=== PATIENT | female | born 1995 | race Caucasian/White ===

== ENCOUNTER 2019-12-19 10:40 | Observation (INO) ==
[2019-12-19] MEDS ORDERED: IOPAMIDOL 100 ML BOTTLE IV ONE (10:41)
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
[2019-12-19] MEDS ORDERED: morphine 4 MG/ML VIAL ONE (11:26)
[2019-12-19] MEDS ORDERED: morphine 2 MG/ML VIAL ONE (11:26)
--- NOTE | 2019-12-19 12:19 | Cat Scan Report ---
History: Nonhealing wound in the left ankle with worsening pain, status post prior ligament repair 11/10/19 TECHNIQUE: The left foot and ankle were imaged following injection of intravenous nonionic contrast. Sagittal, coronal and axial reconstructions were created. The radiation exposure was limited using dose reduction technology. FINDINGS: There is a skin ulceration lateral to the distal fibula. Beneath the ulceration there is a subcutaneous abscess which contains small bubbles of air. The abscess collection measures 1.8 x 2.8 x 3.0 cm. The infection extends into the joint. There is a joint effusion and gas within the ankle joint. There is also surrounding cellulitis. The gas has dissected superior to the ankle joint and extends into the tibialis anterior muscle. No abscess is seen within the muscle. This also small amount of gas posterior to the ankle joint. Bone windows show no apparent osteomyelitis. The ankle joint space is normal in width and alignment.. There is a surgically created small tunnel along the anterior border of the distal fibula following the ligament repair. The subtalar joints and intertarsal joint spaces are normal. There is no fracture or dislocation. IMPRESSION: Abscess along the lateral aspect of the ankle with associated septic ankle joint. Jhon Nazario was called with report Interpreted and Authenticated by: Augustin Del Rio 12/19/19
[2019-12-19] MEDS: fentaNYL 100 MCG/2 ML VIAL IV PRN ×4 (12:20→14:25)
[2019-12-19 12:41] LABS: Basophils # (Auto) 0.07 K/mcL (0.00-0.30); Basophils % (Auto) 0.5 % (0.0-2.0); Eosinophils # (Auto) 0.16 K/mcL (0.00-0.70); Eosinophils % (Auto) 1.2 % (0.0-7.0); Granulocytes % (Auto) 64.5 % (38.0-78.0); Hematocrit 43.7 % (34.1-44.9); Lymphocytes # (Auto) 3.72 K/mcL (1.50-4.80); Lymphocytes % (Auto) 26.9 % (15.5-49.0); Mean Cell Volume 89.4 fL (80.0-100.0); Mean Corpuscular HGB Conc 34.3 g/dL (31.0-36.0); Mean Platelet Volume 9.6 fL (7.4-10.4); Monocytes # (Auto) 0.95 K/mcL (0.10-0.90); Monocytes % (Auto) 6.9 % (1.0-12.0); Platelet Count 287 K/mcL (140-440); RBC 4.89 M/mcL (3.59-5.38); Red Cell Distribution Width 12.3 % (11.5-14.5); WBC 13.8 K/mcL (4.50-11.00)
[2019-12-19 13:02] LABS: ALT/SGPT 22 U/l (0-40); AST/SGOT 18 U/l (0-37); Albumin 4.3 gm/dL (3.2-5.2); Albumin/Globulin Ratio 1.3 (1.0-2.3); Alkaline Phosphatase 64 U/L (39-117); Bilirubin,Total 0.4 mg/dL (0.0-1.0); Blood Urea Nitrogen 14 mg/dl (6-20); Calcium 9.2 mg/dl (8.6-10.4); Carbon Dioxide 23 mmol/L (22-30); Chloride 96 mmol/L (96-108); Globulin 3.2 gm/dL (2.2-3.7); Glomerular Filtration Rate 88; Glucose 100 mg/dL (70-105)
[2019-12-19] MEDS ORDERED: POTASSIUM CHLORIDE 20 MEQ TABLET PO ONE (13:22)
[2019-12-19] MEDS ORDERED: POTASSIUM CHLORIDE 20 MEQ in DEXTROSE 5% IN WATER 250 ML IV ONE (13:22)
[2019-12-19] MEDS ORDERED: VANCOMYCIN PER PHARMACY IV ONE (14:42)
--- NOTE | 2019-12-19 14:43 | History and Physical Report ---
DATE OF ADMISSION: 12/19/2019 HISTORY: This is a 24-year-old female, operated on by Jose Salazar DPM, who has had wound problems for several days now. She underwent an open ankle procedure with arthroscopy by Dr. Salazar on 11/10/2019 or so. The wound has not healed. She has continued to smoke. She presents today with intense pain in her left ankle and a wound on her foot. Her mom, who is an ICU nurse, has been able to probe down to bone through this incision which is open for about 2 cm. PAST MEDICAL HISTORY: Significant for previous hip fracture, chronic anxiety, and chronic depression. MEDICATIONS: 1. Cymbalta 120 mg a day. 2. Lorazepam 2 mg at night, 1 mg during the day. 3. Hydrochlorothiazide 20 mg a day. 4. Lisinopril. SOCIAL HISTORY: Positive for smoking, negative for alcohol. She is not working. She is single and has no children. PHYSICAL EXAM: GENERAL: She is anxious and in pain. She states the pain has been intense for 12 to 24 hours. She responds appropriately to questions. VITAL SIGNS: Her temperature was 96.5. LUNGS: Clear. HEART: Regular rate and rhythm. No murmurs, rubs, or gallops. EXTREMITIES: She is posturing her ankle in 15 degrees of plantar flexion and moves actively only to about 25 degrees of plantar flexion. She has [id number] swelling of the ankle. She has redness around the incision that is open for about 2 cm with serous drainage and some necrotic tissue, and it is partially granulated. Her skin feels tense. DIAGNOSTIC STUDIES: White count is 13,800. A CT scan shows air in the area of the ankle joint. The ESR and CRP are pending. Of interest, her potassium is 2.8 and she is getting potassium in the emergency room. ASSESSMENT AND PLAN: I think she has a septic ankle and needs emergent irrigation and debridement. Closure might be difficult to do, and we would close over a drain or leave the wound partially opened. I consulted with Dr. Del Rio of infectious disease who recommends vancomycin and Rocephin initially and then the tapering of antibiotics based on what the cultures grow. So far I am holding the antibiotics until we can get an accurate culture. We will proceed with emergent surgery. The patient knows she is at risk for severe ankle arthritis and chronic problems in the ankle due to this scenario. TJF:xena Job ID: [id number] Doc ID: [id number] Marcos Minor MD
[2019-12-19] MEDS ORDERED: cefTRIAXone 2 GM in DEXTROSE 5% IN WATER 50 ML IV ONE (14:44)
[2019-12-19] MEDS ORDERED: MIDAZOLAM 5 MG/5 ML VIAL ONE (14:58)
[2019-12-19] MEDS ORDERED: KETAMINE HCL 50 MG/ML ML ONE (14:58)
[2019-12-19] MEDS ORDERED: PROPOFOL 200 MG/20 ML VIAL IV ONE (14:58)
[2019-12-19] MEDS ORDERED: VANCOMYCIN 2,000 MG in 0.9 % SODIUM CHLORIDE 500 ML IV SCH (15:00)
[2019-12-19 15:27] LABS: Appearance,Urine CLEAR; Bacteria,Urine 0 /hpf (0); Bilirubin,Urine NEG (NEG); Color,Urine STRAW; Culture Indicated,Urine NO; Glucose,Urine (UA) NEGATIVE (NEG); Ketones,Urine NEG (NEG); Leukocyte Esterase,Urine NEG /uL (NEG); Mucus,Urine FEW /hpf (0); Nitrate,Urine NEG (NEG); Protein,Urine NEG (NEG); Specific Gravity,Urine 1.033 (1.000-1.035); Urine Blood 0.2 mg/dL (<0.03); Urine RBC 1 /hpf (0-1); Urine Squamous Epithelial Cell 1 /hpf (0-4); Urine WBC 0 /hpf (0-4); Urobilinogen,Urine NEG (NEG)
[2019-12-19] MEDS ORDERED: FLEETS ADULT ENEMA PR PRN (16:45)
[2019-12-19] MEDS ORDERED: BENZOCAINE/MENTHOL 1 LOZENGE PO PRN (16:45)
[2019-12-19] MEDS ORDERED: BISACODYL 10 MG SUPP.RECT PR PRN (16:45)
[2019-12-19] MEDS ORDERED: POLYETHYLENE GLYCOL 3350 17 GM PACKET PO PRN (16:45)
[2019-12-19] MEDS ORDERED: ONDANSETRON 4 MG/2 ML VIAL IV PRN (16:45)
[2019-12-19] MEDS ORDERED: MAGNESIUM HYDROXIDE 30 ML ORAL.SUSP PO PRN (16:45)
--- NOTE | 2019-12-19 16:56 | Brief Operative Note ---
Brief Operative Note Date of procedure: 12/19/19 Pre-op diagnosis: septic left ankle Post-op diagnosis: same Procedure: Incision and drainage Grafts/Implants: No Anesthesia: GETA Findings: purulence noted on ankle aspiration Complications: none Surgeon: Marcos Minor Information Technology Specialist: Stephanie Fairchild Estimated blood loss (cc): 10 Tourniquet Time (Minutes): 20 Specimens Removed/Pathology: none sent (joint cx, sq cx, cell count) Condition: stable Disposition: observation
[2019-12-19] MEDS ORDERED: VANCOMYCIN PER PHARMACY IV SCH (17:00)
[2019-12-19] MEDS: HYDROcodone/APAP 10/325MG TABLET PO PRN ×3 (18:16→23:34)
[2019-12-19] MEDS: 0.45 % SODIUM CHLORIDE 1,000 ML IV SCH (18:22)
[2019-12-19] MEDS ORDERED: ALBUTEROL SULFATE 200 PUFF INHALER INH PRN (19:37)
[2019-12-19] MEDS ORDERED: OMEPRAZOLE 20 MG CAPSULE PO ONE (19:47)
[2019-12-19] MEDS: morphine 4 MG/ML VIAL IV PRN ×2 (20:11→21:11)
[2019-12-19] MEDS ORDERED: LORazepam 1 MG TABLET PO PRN ×2 (20:18→21:42)
[2019-12-19 20:59] LABS: Neutrophils,Synovial Fluid 88 % (0-25); Other Cells,Synovial Fluid 12 %
[2019-12-19 21:00] LABS: Appearance,Synovial Fluid CLOUDY; Color,Synovial Fluid YELLOW; Nucleated Cells,Synovial Fld 84100 /cumm
[2019-12-19] MEDS: ASPIRIN 81 MG TAB.CHEW PO SCH (21:09)
[2019-12-19] MEDS: DOCUSATE SODIUM 100 MG CAPSULE PO SCH (21:09)
[2019-12-19] MEDS: SENNOSIDES 1 TABLET PO SCH (21:09)
[2019-12-19] MEDS: LORazepam 1 MG TABLET PO PRN (21:09)
[2019-12-19] MEDS: diphenhydrAMINE 25 MG CAPSULE PO SCH (21:09)
[2019-12-19] MEDS: 0.9 % SODIUM CHLORIDE 10 ML SYRINGE IV SCH ×3 (21:11→23:35)
[2019-12-19] MEDS ORDERED: KETOROLAC 30 MG/ML VIAL IV ONE (21:26)
[2019-12-19] MEDS: METHOCARBAMOL 1,000 MG/10 ML VIAL IV PRN (21:52)
[2019-12-19] MEDS ORDERED: VANCOMYCIN 500 MG in 0.9 % SODIUM CHLORIDE 100 ML IV ONE (23:00)
[2019-12-20] MEDS: morphine 2 MG/ML VIAL IV PRN ×3 (00:47→08:01)
[2019-12-20] MEDS: HYDROcodone/APAP 10/325MG TABLET PO PRN ×4 (04:20→21:43)
[2019-12-20] MEDS: METHOCARBAMOL 1,000 MG/10 ML VIAL IV PRN (04:21)
[2019-12-20] MEDS: 0.9 % SODIUM CHLORIDE 10 ML SYRINGE IV SCH ×5 (04:21→14:53)
[2019-12-20] MEDS: KETOROLAC 15 MG/ML VIAL IV PRN ×3 (05:54→19:14)
[2019-12-20] MEDS ORDERED: LORazepam 1 MG TABLET PO PRN (06:00)
[2019-12-20 06:33] LABS: Hematocrit 38.9 % (34.1-44.9); Hemoglobin 13.1 g/dL (11.2-15.7)
[2019-12-20 06:43] LABS: INR 1.1 (0.9-1.1); Prothrombin Time 14.3 sec (11.9-14.5)
[2019-12-20] MEDS: OMEPRAZOLE 20 MG CAPSULE PO SCH ×2 (07:45→16:43)
[2019-12-20] MEDS ORDERED: OMEPRAZOLE 20 MG CAPSULE PO SCH (08:00)
[2019-12-20 09:21] LABS: Blood Urea Nitrogen 10 mg/dl (6-20); Calcium 8.5 mg/dl (8.6-10.4); Carbon Dioxide 25 mmol/L (22-30); Chloride 94 mmol/L (96-108); Glomerular Filtration Rate 88; Glucose 93 mg/dL (70-105)
--- NOTE | 2019-12-20 10:06 | XRay Report ---
HISTORY: PICC line insertion FINDINGS: A PICC line has been inserted through the left arm. The tip is at the boundary of the superior vena cava and right atrium. There is no widening of the mediastinum. No pneumothorax or pleural effusion are present. The lungs are clear. The heart size is normal. IMPRESSION: Well-positioned PICC line and no complication Nursing was called with the results Interpreted and Authenticated by: Augustin Del Rio 12/20/19
[2019-12-20] MEDS: LOSARTAN 25 MG TABLET PO SCH (11:17)
[2019-12-20] MEDS: POTASSIUM CHLORIDE 10 MEQ TABLET PO SCH ×2 (11:18→14:52)
[2019-12-20] MEDS: DOCUSATE SODIUM 100 MG CAPSULE PO SCH ×2 (11:18→21:47)
[2019-12-20] MEDS: ASPIRIN 81 MG TAB.CHEW PO SCH ×2 (11:18→21:45)
[2019-12-20] MEDS: DULoxetine 30 MG CAPSULE PO SCH (11:19)
[2019-12-20] MEDS: METHOCARBAMOL 750 MG TABLET PO PRN ×2 (11:22→19:14)
[2019-12-20] MEDS: cefTRIAXone 2 GM in DEXTROSE 5% IN WATER 50 ML IV SCH (11:24)
[2019-12-20] MEDS: VANCOMYCIN 1,500 MG in 0.9 % SODIUM CHLORIDE 500 ML IV SCH ×2 (12:02→21:46)
[2019-12-20 12:17] LABS: Basophils # (Auto) 0.06 K/mcL (0.00-0.30); Basophils % (Auto) 0.5 % (0.0-2.0); Eosinophils # (Auto) 0.15 K/mcL (0.00-0.70); Eosinophils % (Auto) 1.2 % (0.0-7.0); Granulocytes % (Auto) 68.3 % (38.0-78.0); Hematocrit 39.1 % (34.1-44.9); Hemoglobin 13.2 g/dL (11.2-15.7); Lymphocytes # (Auto) 2.39 K/mcL (1.50-4.80); Lymphocytes % (Auto) 19.7 % (15.5-49.0); Mean Cell Volume 91.6 fL (80.0-100.0); Mean Corpuscular HGB Conc 33.8 g/dL (31.0-36.0); Mean Platelet Volume 9.6 fL (7.4-10.4); Monocytes # (Auto) 1.25 K/mcL (0.10-0.90); Monocytes % (Auto) 10.3 % (1.0-12.0); Platelet Count 235 K/mcL (140-440); RBC 4.27 M/mcL (3.59-5.38); Red Cell Distribution Width 12.4 % (11.5-14.5); WBC 12.1 K/mcL (4.50-11.00)
[2019-12-20 12:21] LABS: ALT/SGPT 18 U/l (0-40); AST/SGOT 16 U/l (0-37); Albumin 3.6 gm/dL (3.2-5.2); Albumin/Globulin Ratio 1.1 (1.0-2.3); Alkaline Phosphatase 56 U/L (39-117); Bilirubin,Total 0.6 mg/dL (0.0-1.0); Blood Urea Nitrogen 10 mg/dl (6-20); Calcium 8.4 mg/dl (8.6-10.4); Carbon Dioxide 22 mmol/L (22-30); Chloride 94 mmol/L (96-108); Globulin 3.2 gm/dL (2.2-3.7); Glomerular Filtration Rate 88; Glucose 92 mg/dL (70-105)
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
[2019-12-20] MEDS ORDERED: ENOXAPARIN 40 MG/0.4 ML SYRINGE SQ SCH (13:00)
[2019-12-20] MEDS: 0.45 % SODIUM CHLORIDE 1,000 ML IV SCH ×2 (14:37→21:34)
[2019-12-20] MEDS ORDERED: ENOXAPARIN 40 MG/0.4 ML SYRINGE SQ ONE (14:45)
[2019-12-20] MEDS ORDERED: POTASSIUM CHLORIDE 20 MEQ TABLET PO SCH (16:00)
[2019-12-20] MEDS ORDERED: PANTOPRAZOLE 40 MG TABLET PO SCH (21:00)
[2019-12-20] MEDS: LORazepam 1 MG TABLET PO PRN (21:44)
[2019-12-20] MEDS: SENNOSIDES 1 TABLET PO SCH (21:45)
[2019-12-20] MEDS: diphenhydrAMINE 25 MG CAPSULE PO SCH (21:45)
[2019-12-20] MEDS: ENOXAPARIN 40 MG/0.4 ML SYRINGE SQ SCH (21:47)
[2019-12-21] MEDS: 0.9 % SODIUM CHLORIDE 10 ML SYRINGE IV SCH ×6 (00:25→13:41)
[2019-12-21] MEDS: KETOROLAC 15 MG/ML VIAL IV PRN ×2 (01:18→07:35)
[2019-12-21] MEDS: METHOCARBAMOL 750 MG TABLET PO PRN ×2 (01:18→10:45)
[2019-12-21] MEDS: HYDROcodone/APAP 10/325MG TABLET PO PRN ×4 (02:09→15:10)
[2019-12-21 05:49] LABS: INR 1.1 (0.9-1.1); Prothrombin Time 14.3 sec (11.9-14.5)
[2019-12-21] MEDS: OMEPRAZOLE 20 MG CAPSULE PO SCH (07:35)
[2019-12-21] MEDS ORDERED: 0.9 % SODIUM CHLORIDE 1,000 ML IV SCH (08:00)
[2019-12-21] MEDS: 0.45 % SODIUM CHLORIDE 1,000 ML IV SCH (08:16)
[2019-12-21] MEDS: DULoxetine 30 MG CAPSULE PO SCH (08:25)
[2019-12-21] MEDS: LOSARTAN 25 MG TABLET PO SCH (08:26)
[2019-12-21] MEDS: DOCUSATE SODIUM 100 MG CAPSULE PO SCH (08:26)
[2019-12-21] MEDS: ASPIRIN 81 MG TAB.CHEW PO SCH (08:26)
[2019-12-21] MEDS: ENOXAPARIN 40 MG/0.4 ML SYRINGE SQ SCH (08:27)
[2019-12-21] MEDS: cefTRIAXone 2 GM in DEXTROSE 5% IN WATER 50 ML IV SCH (08:29)
[2019-12-21 10:07] LABS: Basophils # (Auto) 0.03 K/mcL (0.00-0.30); Basophils % (Auto) 0.4 % (0.0-2.0); Eosinophils # (Auto) 0.24 K/mcL (0.00-0.70); Eosinophils % (Auto) 3.3 % (0.0-7.0); Granulocytes % (Auto) 53.8 % (38.0-78.0); Hematocrit 34.5 % (34.1-44.9); Hemoglobin 11.8 g/dL (11.2-15.7); Lymphocytes # (Auto) 2.35 K/mcL (1.50-4.80); Lymphocytes % (Auto) 32.1 % (15.5-49.0); Mean Cell Volume 91.5 fL (80.0-100.0); Mean Corpuscular HGB Conc 34.2 g/dL (31.0-36.0); Monocytes # (Auto) 0.76 K/mcL (0.10-0.90); Monocytes % (Auto) 10.4 % (1.0-12.0); Platelet Count 215 K/mcL (140-440); RBC 3.77 M/mcL (3.59-5.38); Red Cell Distribution Width 12.5 % (11.5-14.5); WBC 7.3 K/mcL (4.50-11.00)
[2019-12-21 10:17] LABS: ALT/SGPT 22 U/l (0-40); AST/SGOT 19 U/l (0-37); Albumin 3.4 gm/dL (3.2-5.2); Alkaline Phosphatase 54 U/L (39-117); Bilirubin,Total 0.2 mg/dL (0.0-1.0); Blood Urea Nitrogen 12 mg/dl (6-20); Calcium 8.4 mg/dl (8.6-10.4); Carbon Dioxide 21 mmol/L (22-30); Chloride 103 mmol/L (96-108); Globulin 3.3 gm/dL (2.2-3.7); Glomerular Filtration Rate 78; Glucose 95 mg/dL (70-105)
[2019-12-21] MEDS: VANCOMYCIN 1,500 MG in 0.9 % SODIUM CHLORIDE 500 ML IV SCH (10:41)
--- NOTE | 2019-12-21 11:25 | Discharge Summary ---
Discharge Provider Provider Patient information: Note initiated : 12/21/19 at 11:25 am Service Date, if different from initiated Date: [] Patient: Zenia Ramon 24 y/o F admitted on 12/20/19 for Left Ankle Problem, Recent Surgery. Chief Complaint: [] Refer to HP by Dr. Minor and consult note from Dr. Shantelle Todd on 12/20/2019 Patient is a 24-year old female with a history of hypertension, obesity and current smoker who presented to the ER due to left ankle pain. Patient underwent open ankle procedure with arthroscopy by Dr. Salazar on 11/10/2019. As per patient, her left ankle developed severe pain yesterday. Otherwise she denies headaches, dizziness, chest pain, shortness of breath, fever, chills, nausea, or vomiting. Left ankle CT showed Abscess along the lateral aspect of the ankle with associated septic ankle joint. Dr. Minor drained abscess and admitted the patient to the hospital. Medicine consult was requested by Dr. Minor due to hypertension. Date of admission: 12/20/19 12:00 Discharge date: 12/21/19 Primary care physician: MARTÍNEZ Ramirez Consults: 12/19/19 12:52 Consult to Physician [CONS] Stat Comment: Consulting Provider: Marcos Minor Reason For Exam: Physician to Consult 12/20/19 08:29 Consult to Physician [CONS] Routine Comment: discussed with Dr Garg Consulting Provider: Hospitalist Group [facility] Reason For Exam: Physician to Consult Discharge Meds Discharge Medications Home Medications omeprazole 40 mg PO BID 01/15/19 [History Confirmed 12/19/19 Last Taken 12/19/19 07:00] levonorgestrel 20 mcg/24 hours (5 yrs) 52 mg intrauterine device 1 device I NTRAUTERI ONCE 03/25/19 [History Confirmed 12/19/19 Last Taken Unknown] albuterol sulfate 8.5 gm IH DAILY PRN 11/04/19 [History Confirmed 12/19/19 Last Taken 11/10/19] diphenhydramine HCl 50 mg PO QHS 11/04/19 [History Confirmed 12/19/19 Last Taken 12/18/19 23:00] cholecalciferol (vitamin D3) 50 mcg (2,000 unit) capsule 5,000 unit PO DAILY cap 12/09/19 [History Confirmed 12/19/19 Last Taken 12/19/19 07:00] duloxetine 60 mg capsule,delayed release 120 mg PO QAM #60 cap 12/09/19 [Rx Confirmed 12/19/19 Last Taken 12/19/19 07:00] lorazepam 2 mg tablet See Rx Instructions .ROUTE .COMPLEX #45 tab 12/09/19 [Rx Confirmed 12/19/19 Last Taken 12/19/19 07:00] losartan 25 mg PO QDAY 12/19/19 [History Confirmed 12/19/19 Last Taken 12/19/19 07:00] ceftriaxone 2 g IV Q24H 28 Days #28 each 12/21/19 [Rx Last Taken Unknown] docusate sodium 100 mg PO BID 30 Days #60 cap 12/21/19 [Rx Last Taken Unknown] enoxaparin [Lovenox] 40 mg SUBCUT BID 10 Days #8 ml 12/21/19 [Rx Last Taken Unknown] metronidazole 500 mg PO Q8 28 Days #84 tab 12/21/19 [Rx Last Taken Unknown] omeprazole 40 mg PO BIDAC 14 Days #56 cap 12/21/19 [Rx Last Taken Unknown] oxycodone-acetaminophen [Percocet] 1 tab PO Q8H PRN #9 tab 12/21/19 [Rx Last Taken Unknown] polyethylene glycol 3350 [Miralax] 17 g PO DAILYP PRN 10 Days #10 each 12/21/19 [Rx Last Taken Unknown] COURSE Hospital Course Hospital course: By problems: 1. Septic arthritis of left ankle 2. S/p arthorscopy on 11/10/2019 CT of left angle showed abscess along the lateral aspect of the ankle with associated septic ankle joint Dr. iMnor drained the abscess Postop management including pain control and DVT prophylaxis by surgical team synovial fluid culture showed positive for clostridium perfringens. Discussed with ID Dr. Del Rio who suggested to discontinue vancomycin and continue Rocephin and will add flagyl 500mg Q8hrs po. She can be discharged to home today to f/u [facility] ID Dr. Durant in one week. PICC line was placed already 3. Current smoker Smoking cessation counseling Nicotine patch if necessary 4. HTN Blood pressure is controlled Continue home medication 5. Morbid obesity, BMI 40.6 Follow with PCP 6. Hypokalemia, resolved. Potassium was given Repeat potassium in the morning 7. DVT prophylaxis: Lovenox 40 mg twice daily if not contraindicated from surgical standpoint Discussed with Dr. Minor this morning who agreed to discharge this patient to home today and agreed with Lovenox 40 mg twice daily for DVT prophylaxis. Dr. Minor will see patient in 3 days. Today patient feels better. Denies fever, chills, dizziness, or shortness of breath. Vital signs are acceptable. White blood cells went back to normal. She really wants to go home. She will be discharged home to follow with the PCP in 3 days, Dr. Minor in [address] durant in 1 week. In addition, patient's home medication including Benadryl and high-dose Ativan. I feel the doses of these 2 medications are too high. I discussed and explained my concerns to the patient. She could from these 2 medications at such high doses. She fully understood and still would like to continue these meds but she will discuss the issue with her pcp when she sees him. IV infusion will be set up. Pt will be educated for sq lovenox injuection by RN. Pt also mentioned that she has done SQ injection in the past and her mom was an SUPERVISOR FILTRATION. DO NOT drive or operate machine until approval from MD. Call PCP for medical issues. Discharge diagnosis: Septic arthritis of left ankle Time Spent with Patient Time attestation: Total time spent providing and/or coordinating discharge services: EXAM Constitutional Vitals: Temp Pulse Resp BP Pulse Ox 97.8 F 81 16 100/44 97 12/21/19 08:00 12/21/19 08:00 12/21/19 08:00 12/21/19 08:00 12/21/19 08:00 Additional findings Additional findings: General: Morbid obesity, alert, Awake, No acute Distress, obese Eyes/N/T: EOMI, Head/Neck: neck supple, CV: RRR, No murmurs, Pulm: diminished b/l, mild fine rales at bases, no wheezing today Abd: soft, nontender, +BS x4 Ext: Left leg is wrapped. Dressing dry. Neuro: Alert, no focal deficits, moves all extremities, decrease b/l LE sensations chronic Skin: warm/dry Discharge Data Data Completed and Pending Labs on day of discharge: Labs from last 24 hours 12/21/19 12/21/19 12/21/19 08:08 08:08 08:08 WBC 7.3 RBC 3.77 Hgb 11.8 Hct 34.5 MCV 91.5 MCH 31.3 MCHC 34.2 RDW 12.5 Plt Count 215 MPV 10.0 Gran % 53.8 Lymph % (Auto) 32.1 Bacon % (Auto) 10.4 Eos % (Auto) 3.3 Baso % (Auto) 0.4 Gran # 3.94 Lymph # (Auto) 2.35 [place] # (Auto) 0.76 Eos # (Auto) 0.24 Baso # (Auto) 0.03 PT INR Sodium 138 Potassium 3.8 Chloride 103 Carbon Dioxide 21 L Anion Gap 14.0 BUN 12 Creatinine 1.0 GFR Calculation 78 Glucose 95 Calcium 8.4 L Total Bilirubin 0.2 AST 19 ALT 22 Alkaline Phosphatase 54 Total Protein 6.7 Albumin 3.4 Globulin 3.3 Albumin/Globulin Ratio 1.0 Vancomycin Trough 11.9 12/21/19 12/20/19 12/20/19 04:26 07:30 05:20 WBC 12.1 H RBC 4.27 Hgb 13.2 Hct 39.1 MCV 91.6 MCH 30.9 MCHC 33.8 RDW 12.4 Plt Count 235 MPV 9.6 Gran % 68.3 Lymph % (Auto) 19.7 [place] % (Auto) 10.3 Eos % (Auto) 1.2 Baso % (Auto) 0.5 Gran # 8.27 H Lymph # (Auto) 2.39 [place] # (Auto) 1.25 H Eos # (Auto) 0.15 Baso # (Auto) 0.06 PT 14.3 INR 1.1 Sodium 133 Potassium 2.9 L* Chloride 94 L Carbon Dioxide 22 Anion Gap 17.0 H BUN 10 Creatinine 0.9 GFR Calculation 88 Glucose 92 Calcium 8.4 L Total Bilirubin 0.6 AST 16 ALT 18 Alkaline Phosphatase 56 Total Protein 6.8 Albumin 3.6 Globulin 3.2 Albumin/Globulin Ratio 1.1 Vancomycin Trough Preliminary micro results at discharge 12/19/19 19:02 Anaerobic Culture - Preliminary Ankle - Left Clostridium perfringens 12/19/19 19:54 Anaerobic Culture - Preliminary Synovial Fluid - Ankle Clostridium perfringens 12/19/19 19:51 Body Fluid Culture - Preliminary Synovial Fluid - Ankle 12/19/19 19:02 Wound Culture - Preliminary Ankle - Left 12/19/19 11:38 Wound Culture - Preliminary Ankle - Left Discharge Plan Patient/Caregiver Discharge Instructions Activity: as per physical therapy and increase activity as tolerated Diet: Regular Diet Instructions: Hydrocodone/Acetaminophen (By mouth), Aspirin (By mouth), Methocarbamol (By mouth), Debridement (DC), PICC (Peripherally Inserted Central Catheter) (DC) Activity Restrictions/Additional Instructions: postop management by orthopedic team Prescriptions: New ceftriaxone 2 gram recon soln 2 g IV Q24H 28 Days Qty: 28 RF: 0 docusate sodium 100 mg Capsule 100 mg PO BID 30 Days Qty: 60 RF: 0 enoxaparin [Lovenox] 40 mg/0.4 mL Syringe 40 mg subcut BID 10 Days Qty: 8 RF: 0 polyethylene glycol 3350 [Miralax] 17 gram Powder In Packet 17 g PO DAILYP PRN (Reason: Constipation) 10 Days Qty: 10 RF: 0 metronidazole 500 mg Tablet 500 mg PO Q8 28 Days Qty: 84 RF: 0 omeprazole 20 mg Capsule,Delayed Release(Dr/Ec) 40 mg PO BIDAC 14 Days Qty: 56 RF: 0 oxycodone-acetaminophen [Percocet] 5-325 mg tablet 1 tab PO Q8H PRN (Reason: pain) Qty: 9 RF: 0 Continued lorazepam 2 mg tablet See Rx Instructions .ROUTE .COMPLEX Qty: 45 RF: 3 duloxetine 60 mg capsule,delayed release(DR/EC) 120 mg PO QAM Qty: 60 RF: 3 Mirena 20 mcg/24 hours (5 yrs) 52 mg intrauterine device 1 device INTRAUTERI ONCE RF: 0 omeprazole 20 MG capsule,delayed release(DR/EC) 40 mg PO BID RF: 0 cholecalciferol (vitamin D3) 50 mcg (2,000 unit) capsule 5,000 unit PO DAILY RF: 0 diphenhydramine HCl 25 MG capsule 50 mg PO QHS RF: 0 albuterol sulfate 8.5 GM HFA aerosol inhaler 8.5 gm IH DAILY PRN (Reason: Shortness Of Breath) RF: 0 losartan 25 mg Tablet 25 mg PO QDAY RF: 0 Discontinued ondansetron 4 mg tablet,disintegrating 4 mg PO TID-QID PRN (Reason: nausea and vomiting) RF: 0 chlorthalidone 25 MG tablet 25 mg PO DAILY RF: 0 Follow Up Plan Follow up with: Tyson Weldon ARNP [Primary Care Provider] - (in 3 days) Marcos Minor MD [Physician] - 12/24/19 Jesse Durant [Referring] - (in one week) Patient Disposition: Home, Self-Care Care Plan Goals: resolve infection Hospital Course: admitted for septic ankle after l ankle surgery by Martin HARRINGTON . I and D performed IV antibiotics started Assessment: Hospitalists to pick IV antibiotics at DC Prognosis: Good Rehab Potential: Fair I certify that the patient requires SNF services: No Overall status at discharge: patient is not back to baseline Discharge Orders: Discharge Order (Routine); Ordered 12/21/19 Ordered By: Shantelle Todd
[2019-12-21] MEDS ORDERED: metroNIDAZOLE 500 MG TABLET PO SCH (14:00)
--- NOTE | 2019-12-22 07:25 | Operative Note ---
DATE OF OPERATION: 12/20/2019 DATE OF SURGERY: 12/19/2019 PREOPERATIVE DIAGNOSIS: Septic left ankle, status post ligament reconstruction by Bayron Salazar DPM. POSTOPERATIVE DIAGNOSIS: Septic left ankle, status post ligament reconstruction by Bayron Salazar DPM. OPERATION: Incision and drainage left ankle. SURGEON: Marcos Minor MD [employer] OPERATOR: Stephanie Fairchild PA-C. This provider's expertise and technical skill were required throughout the case. The [facility] assisted with preoperative coordination, intraoperative retraction, wound closure, dressing and splint application, as well as postoperative documentation and care coordination. ANESTHESIA: Spinal, done by Sveta Escudero CRNA. TOURNIQUET TIME: About 30 minutes, ankle level Esmarch tourniquet. ESTIMATED BLOOD LOSS: 10 mL SUMMARY OF PROCEDURE: A spinal was obtained. The patient was also sedated. The left leg was prepped and draped. An ankle level Esmarch tourniquet was put up. The patient had a transverse lateral incision, which was dehiscing and showed drainage. Prior to the open surgery, the patient's ankle was aspirated. This was done from a medial approach. Two mL of pus-like fluid were obtained and this was sent for cell count and culture. The patient's lateral incision was next approached. After opening the skin completely, the skin incision was extended proximally to obtain access to the joint. The subcutaneous tissue had purulent fluid and this was swabbed for culture. The joint was next opened. There was an internal brace identified. I checked the stability of the ankle and it was intact and the brace did not look grossly infected and it was therefore left in place. Dorsal to this, the ankle could be identified. The joint was then thoroughly irrigated with 4.5 liters normal saline and 1 liter IrriSept. I then placed a drain into the joint. The wound itself was debrided of any infected tissue and suture remnants. A drain was placed across the joint and out the anteromedial portal. The skin and subcutaneous tissue were next closed with mattress sutures of 0 Prolene. A sterile compressive dressing was applied followed by a Pino boot with the ankle and neutral dorsiflexion. The sponge and needle count was correct. The patient tolerated the procedure well and was taken to the recovery room in stable condition. GIAF:ramsey Job ID: [id number] Doc ID: [id number] Marcos Minor MD
== END 2019-12-21 15:20 | disposition home or self-care (01) ==
LOC: ED 10:40 → MEDSUR 14:35 → SUR 14:35 → MEDSUR 16:57
PROVIDERS: ADMIT Orthopaedic Surgery Foot and Ankle Surgery; ATTEND Internal Medicine